=== PATIENT | female | born 1980 ===

== ENCOUNTER 2019-03-09 11:41 | Emergency (ER) | payer OTHER ==
[2019-03-09 11:46] VITALS: BMI 26.4
[2019-03-09 11:47] VITALS: BP 128/84; PULSE 76; RESP 17; TEMP 99; O2SAT 98
--- NOTE | 2019-03-09 13:12 | ED PDOC ---
HPI: Skin/Bite Injury Time Seen by Provider: 03/09/19 12:24 Chief Complaint (Nursing): Abnormal Skin Integrity Chief Complaint (Provider): Bite wound History Per: Patient History/Exam Limitations: no limitations Onset/Duration Of Symptoms: Days (4) Current Symptoms Are (Timing): Still Present Location Of Injury: Left: Leg Quality Of Symptoms: Painful Additional History Per: Patient Additional Complaint(s): Patient comes in for evaluation of a painful wound to her left lower leg, present for the past 4 days. She reports pain, swelling and redness to the surrounding site. Patient also reports tactile fever. No medication taken for pain. Patient also reports she is concerned about ; states she was on contraceptives but stopped taking them 4 months ago. Patient is now worried she might be . She otherwise denies any abdominal pain, vaginal bleeding or discharge, and offers no additional complaints. LMP: 1 year ago (due to contraceptives) Past Medical History Reviewed: Historical Data, Nursing Documentation, Vital Signs Vital Signs: Last Vital Signs Temp 99 F 03/09/19 11:46 Pulse 76 03/09/19 11:46 Resp 17 03/09/19 11:46 BP 128/84 03/09/19 11:46 Pulse Ox 98 03/09/19 11:46 Primary Care Provider: FAMILY PROVIDER,NO - Medical History PMH: Migraine - Surgical History Surgical History: No Surg Hx - Family History Family History: States: No Known Family Hx - Home Medications Home Medications: Ambulatory Orders Medication Instructions Recorded Clindamycin [Cleocin] 300 mg PO QID #40 cap 03/09/19 - Allergies Allergies/Adverse Reactions: Allergies Allergy/AdvReac Type Severity Reaction Status Date / Time No Known Allergies Allergy Verified 03/09/19 12:20 Review of Systems Constitutional: Positive for: Fever (tactile) Genitourinary Female: Negative for: Dysuria, Frequency, Hematuria, Vaginal Discharge, Vaginal Bleeding, Pelvic Pain Skin: Positive for: Lesions (on left lower leg w/ pain and swelling) Physical Exam - Reviewed Nursing Documentation Reviewed: Yes Vital Signs Reviewed: Yes - Physical Exam Appears: Positive for: Non-toxic, No Acute Distress Head Exam: Positive for: NORMAL INSPECTION Skin: Positive for: Normal Color Eye Exam: Positive for: Normal appearance Neck: Positive for: Supple Cardiovascular/Chest: Negative for: Tachycardia Respiratory: Negative for: Respiratory Distress Pulses-Dorsalis Pedis (L): 2+ Extremity: Positive for: Normal ROM (FROM of left leg), Other (1cm open shallow wound to left lower medial leg with surrounding erythema and tenderness. No streaking noted.) Neurological/Psych: Positive for: Awake, Alert - ECG O2 Sat by Pulse Oximetry: 98 (RA) Pulse Ox Interpretation: Normal Medical Decision Making Medical Decision Making: Impression: Wound check Plan: -- Upreg Patient's test is negative; informed to [facility] Patient prescribed antibiotics, instructed to take as prescribed and to follow up with [facility] in 2-3 days. - Scribe Attestation: Documented by Anna Faustin, acting as a scribe for MOHINDER Zelaya Provider Scribe Attestation: All medical record entries made by the Scribe were at my direction and personally dictated by me. I have reviewed the chart and agree that the record accurately reflects my personal performance of the history, physical exam, medical decision making, and the department course for this patient. I have also personally directed, reviewed, and agree with the discharge instructions and disposition. Disposition - Clinical Impression Clinical Impression: Cellulitis - Disposition Disposition: Routine/Home Disposition Time: 13:20 Condition: STABLE Prescriptions: Clindamycin [Cleocin] 300 mg PO QID #40 cap Instructions: Cellulitis (Skin Infection), Adult (DC) Forms: [email or web address] (Mozambican) Print Language: LATVIAN
== END 2019-03-09 13:28 | disposition home or self-care (01) ==
LOC: H.ER 11:41
DX: L03.116 Cellulitis of left lower limb (principal)